=== PATIENT | female | born 1960 | race Caucasian/White ===

== ENCOUNTER 2017-02-09 18:46 | Emergency (ER) | payer OTHER ==
[~2017-02-09] VITALS: Ht 152.4 cm; Wt 77.1 kg
[2017-02-09 18:56] VITALS: BP 157/96
--- NOTE | 2017-02-09 19:28 | NUR ---
PATIENT PRESENTS TO ED WITH C/O LACERATION ON RIGHT HAND BETWEEN THUMB AND INDEX FINGER 4/10; WASHING BROKEN DISHES AT 1300 TODAY PT DENIES N/V/D; SKIN IS PINK/WARM/DRY; AAOX4 WITH EVEN AND STEADY GAIT; LUNGS CLEAR BL; HR EVEN AND REGULAR; PT DENIES ANY FEVER, CP, SOB, OR COUGH AT THIS TIME; PATIENT STATES PAIN OF 4/10 AT THIS TIME; VSS; PATIENT POSITIONED FOR COMFORT; HOB ELEVATED; BEDRAILS UP X2; BED DOWN. ER MD MADE AWARE OF PT STATUS.
--- NOTE | 2017-02-09 19:29 | NUR ---
Patient noted to have laceration upon arrival to ER. Wound covered with dressing.
[2017-02-09] MEDS ORDERED: LIDOCAINE 1% 500 MG/50 ML VIAL INJ ONE (19:40)
[2017-02-09] MEDS ORDERED: NEOMYCIN/POLYMYXIN/BACITRACIN 0.9 GM/1 PKT TP ONE (19:48)
--- NOTE | 2017-02-09 20:00 | NUR ---
Patient has a small lac between right thumb and index finger. Site cleansed with sterile water and betadine. Dr Monroe applied lidociane and stiched up laceration. Pt tolerated well.
[2017-02-09 20:10] VITALS: BP 157/96
== END 2017-02-09 20:10 | disposition home or self-care (01) ==
LOC: MED 18:46
DX: S61.411A Laceration without foreign body of right hand, initial encounter (principal); E11.9 Type 2 diabetes mellitus without complications; I10 Essential (primary) hypertension; Z88.5 Allergy status to narcotic agent; W45.8XXA Other foreign body or object entering through skin, initial encounter; Y93.89 Activity, other specified; Y92.89 Other specified places as the place of occurrence of the external cause; Y99.8 Other external cause status
CPT/HCPCS: 12001; 90471; 90715; 99283; J2001

== ENCOUNTER 2017-02-19 16:38 | Emergency (ER) | payer OTHER ==
[~2017-02-19] VITALS: Ht 154.9 cm; Wt 77.1 kg
[2017-02-19 16:50] VITALS: BP 100/80
--- NOTE | 2017-02-19 17:51 | NUR ---
PATIENT AMBULATED TO ER OF1.
--- NOTE | 2017-02-19 17:57 | NUR ---
TO OF #1 FOR SUTURE REMOVAL RT. HAND. SUTURED X10 DAYS AGO PER PATIENT. NO S/S OF INFECTION
--- NOTE | 2017-02-19 18:00 | NUR ---
PATIENT BEING EVALUATED BY DR. ZIEGLER.
[2017-02-19] MEDS ORDERED: NEOMYCIN/POLYMYXIN/BACITRACIN 0.9 GM/1 PKT TP ONE (18:13)
--- NOTE | 2017-02-19 18:16 | NUR ---
WOUND SEEN BY ERMD.SUTURE REMOVAL.TOLERATED PROCEDURE.DRESSED WITH NEOSPORIN OINTMENT
[2017-02-19 18:35] VITALS: BP 159/91
--- NOTE | 2017-02-19 18:35 | NUR ---
Patient discharged with v/s stable. Written and verbal after care instructions given and explained. Patient verbalized understanding. Ambulatory with steady gait. All questions addressed prior to discharge. Advised to follow up with PMD.
== END 2017-02-19 18:35 | disposition home or self-care (01) ==
LOC: MED 16:38
DX: S61.411D Laceration without foreign body of right hand, subsequent encounter (principal); E11.9 Type 2 diabetes mellitus without complications; I10 Essential (primary) hypertension; Z88.5 Allergy status to narcotic agent; X58.XXXD Exposure to other specified factors, subsequent encounter; Y92.89 Other specified places as the place of occurrence of the external cause; Y99.8 Other external cause status
CPT/HCPCS: 99283